=== PATIENT | male | born 1925 | race Caucasian/White ===

== ENCOUNTER 2016-11-16 17:16 | Emergency (ER) | payer OTHER ==
[~2016-11-16] VITALS: Ht 157.5 cm; Wt 70.0 kg
[2016-11-16 17:22] VITALS: TEMP 36.8; Ht 157.5 cm; Wt 70.0 kg
[2016-11-16] MEDS ORDERED: METO50TA16 PO (17:58)
[2016-11-16] MEDS ORDERED: FURO-85 PO (17:58)
[2016-11-16] MEDS ORDERED: PRLSR20 PO (17:58)
[2016-11-16] MEDS ORDERED: FORM1NEB NEB (17:58)
[2016-11-16] MEDS ORDERED: ATOR-26 PO (17:58)
[2016-11-16] MEDS ORDERED: ASPI-113 PO (17:58)
[2016-11-16] MEDS ORDERED: PLMIN90 INH (17:58)
[2016-11-16] MEDS ORDERED: OXGN (17:58)
[2016-11-16] MEDS ORDERED: ALBUAER INH (17:58)
[2016-11-16] MEDS ORDERED: LNX125 PO (17:58)
[2016-11-16 18:15] LABS: BASO % 0.3 %; BASO ABS # 0.02 K/uL (0-0.2); COMPLETE YES; EOS % 3.3 %; IG% 0.1 %; LYMPH % 23.7 %; LYMPH ABS # 1.75 K/uL (1.2-3.4); MEAN CELL VOLUME 93.8 fL (80-100); MEAN CORPUSCULAR HEMOGLOBIN 31.7 pg (25-34); MEAN CORPUSCULAR HGB CONC 33.8 g/dl (32-36); MEAN PLATELET VOLUME 10.1 fL (7.4-10.4); MONO % 9.4 %; NEUT % 63.2 %; PLATELET COUNT 184 K/uL (130-400); RED BLOOD COUNT 4.16 M/uL (4.7-6.1); WHITE BLOOD COUNT 7.37 K/uL (4.8-10.8)
[2016-11-16 18:28] LABS: PARTIAL THROMBOPLASTIN RATIO 1.1; PROTHROMBIN TIME (PATIENT) 10.8 SECONDS (9.0-12.0)
[2016-11-16 18:31] LABS: CALCIUM 8.4 mg/dl (8.5-10.1); CREATININE 1.1 mg/dl (0.60-1.40)
--- NOTE | 2016-11-16 18:52 | DIAGNOSTIC IMAGING REPORT ---
RIGHT LOWER EXTREMITY VENOUS DOPPLER HISTORY: Right leg bruising. COMPARISON STUDY: None. FINDINGS: There is normal compressibility, flow, and augmentation within the right lower extremity deep venous system. IMPRESSION: No DVT within the right lower extremity Electronically signed by: Sd Goode M.D. 11/16/2016 6:51 PM Dictated Date/Time: 11/16/2016 6:50 PM
[2016-11-16 19:21] VITALS: BP 119/69; PULSE 79; O2SAT 98
--- NOTE | 2016-11-16 20:38 | EMERGENCY ROOM VISIT NOTE ---
History Report prepared by Justine: Rajani Simon Under the Supervision of: Dr. Danny Burns M.D. First contact with patient: 17:28 Chief Complaint: OTHER COMPLAINT Stated Complaint: BRUISING IN GROIN AREA History of Present Illness The patient is an 89 year old male who presents to the Emergency Room with complaints of an episode of an injury to his right groin area occurring 2 days ago. He was carrying his groceries into his house 2 days ago when he twisted and had a sudden pain in his right groin. He started to fall and caught himself. When he did that he twisted again. Yesterday, while sitting on the toilet, the patient noticed that his right inner thigh was red. He now denies any pain or swelling to the area. The patient also denies fever, vomiting, abdominal pain, back pain, and urinary symptoms. He is still able to ambulate without difficulty. He takes a daily aspirin. Source of History: patient Onset: 2 days ago Position: other (right groin) Quality: other (redness) Timing: other (episode) Modifying Factors (Worsening): other (twisting) Associated Symptoms: No fevers, No vomiting, No abdominal pain, No back pain , No urinary symptoms Review of Systems See HPI for pertinent positives & negatives. A total of 10 systems reviewed and were otherwise negative. Past Medical & Surgical Medical Problems: (1) COPD (chronic obstructive pulmonary disease) Family History Non-pertinent due to advanced age. Social History Smoking Status: Former Smoker Housing Status: lives alone Occupation Status: retired Current/Historical Medications Scheduled Aspirin Enteric Coated (Ecotrin Or Generic), 325 MG PO DAILY Atorvastatin (Lipitor), 80 MG PO DAILY Budesonide (Pulmicort Flexhaler), 2 PUFFS INH BID Digoxin (Digoxin), 0.125 MG PO DAILY Formoterol Fumarate (Perforomist), 1 VIAL NEB BID Furosemide (Lasix), 30 MG PO DAILY Home O2 Therapy (Oxygen), 2 LITERS NA CONTINOUS Metoprolol Tartrate (Lopressor) (Lopressor), 25 MG PO BID Omeprazole (Prilosec), 20 MG PO DAILY Scheduled PRN Albuterol Sulfate (Proventil Hfa), 2 PUFFS INH UD PRN for SOB/Wheezing Allergies Coded Allergies: Nitroglycerin (Verified Allergy, Intermediate, Nausea//Vomiting, 11/16/16) Physical Exam Vital Signs Date Time Temp Pulse Resp B/P (MAP) Pulse Ox O2 Delivery O2 Flow Rate FiO2 11/16/16 19:21 79 16 119/69 98 11/16/16 17:22 36.8 67 28 125/86 97 Nasal Cannula 2.0 Physical Exam Constitutional: Vital signs reviewed. Eyes: Pupils are equal round reactive to light. Conjunctiva are noninjected. ENT: Pharynx is clear without erythema or exudate. Mucous membranes are moist. Neck supple without meningeal signs. Respiratory: Clear to auscultation bilaterally. Breath sounds are equal bilaterally. Cardiovascular: Regular rate and rhythm. No rubs or gallops. GI: Soft, nondistended and nontender. Bowel sounds are present. Musculoskeletal: No peripheral edema. No lower extremity tenderness. He has bruising to the right inner thigh, normal distal pulses, no tenderness, FROM of the hip without tenderness. Integumentary: No cyanosis. Neurological: The patient is awake and alert. No focal deficits. Psychiatric: Normal affect. Medical Decision & Procedures ER Provider Diagnostic Interpretation: Radiology results as stated below per my review and the radiologist's interpretation: RIGHT LOWER EXTREMITY VENOUS DOPPLER HISTORY: Right leg bruising. COMPARISON STUDY: None. FINDINGS: There is normal compressibility, flow, and augmentation within the right lower extremity deep venous system. IMPRESSION: No DVT within the right lower extremity Electronically signed by: Sd Goode M.D. 11/16/2016 6:51 PM Dictated Date/Time: 11/16/2016 6:50 PM Laboratory Results 11/16/16 18:00 Red Blood Count 4.16, Mean Corpuscular Volume 93.8, Mean Corpuscular Hemoglobin 31.7, Mean Corpuscular Hemoglobin Concent 33.8, Mean Platelet Volume 10.1, Neutrophils (%) (Auto) 63.2, Lymphocytes (%) (Auto) 23.7, Monocytes (%) (Auto) 9.4, Eosinophils (%) (Auto) 3.3, Basophils (%) (Auto) 0.3, Neutrophils # (Auto) 4.66, Lymphocytes # (Auto) 1.75, Monocytes # (Auto) 0.69, Eosinophils # (Auto) 0.24, Basophils # (Auto) 0.02 11/16/16 18:00 Test 11/16/16 18:00 White Blood Count 7.37 K/uL (4.8-10.8) Red Blood Count 4.16 M/uL (4.7-6.1) Hemoglobin 13.2 g/dL (14.0-18.0) Hematocrit 39.0 % (42-52) Mean Corpuscular Volume 93.8 fL (80-100) Mean Corpuscular Hemoglobin 31.7 pg (25-34) Mean Corpuscular Hemoglobin Concent 33.8 g/dl (32-36) Platelet Count 184 K/uL (130-400) Mean Platelet Volume 10.1 fL (7.4-10.4) Neutrophils (%) (Auto) 63.2 % Lymphocytes (%) (Auto) 23.7 % Monocytes (%) (Auto) 9.4 % Eosinophils (%) (Auto) 3.3 % Basophils (%) (Auto) 0.3 % Neutrophils # (Auto) 4.66 K/uL (1.4-6.5) Lymphocytes # (Auto) 1.75 K/uL (1.2-3.4) Monocytes # (Auto) 0.69 K/uL (0.11-0.59) Eosinophils # (Auto) 0.24 K/uL (0-0.5) Basophils # (Auto) 0.02 K/uL (0-0.2) RDW Standard Deviation 44.9 fL (36.4-46.3) RDW Coefficient of Variation 13.0 % (11.5-14.5) Immature Granulocyte % (Auto) 0.1 % Immature Granulocyte # (Auto) 0.01 K/uL (0.00-0.02) Prothrombin Time 10.8 SECONDS (9.0-12.0) Prothromb Time International Ratio 1.0 (0.9-1.1) Activated Partial Thromboplast Time 28.9 SECONDS (21.0-31.0) Partial Thromboplastin Ratio 1.1 Anion Gap 4.0 mmol/L (3-11) Est Creatinine Clear Calc Drug Dose 39.9 ml/min Estimated GFR () 69.1 Estimated GFR (Non- 59.6 BUN/Creatinine Ratio 17.0 (10-20) Calcium Level 8.4 mg/dl (8.5-10.1) Laboratory results as reviewed by me. ED Course 1728: The patient was evaluated in room B11B. A complete history and physical exam was performed. 1853: I reassessed the patient at this time. He is feeling better and resting comfortably. I discussed the results and treatment plan with the patient. I answered all pertaining questions that he had. He expressed understanding and verbalized agreement. The patient will be discharged home. Medical Decision This is an 89-year-old male who presents with transient groin pain with bruising. Differential diagnosis includes groin pull, strain, superficial thrombophlebitis, DVT. I did perform a limited focused review of portions of the patient's old chart on the electronic medical record. The patient has had no recent pertinent visits to this hospital. Medication Reconciliation: I attest that I have personally reviewed the patient' s current medication list. Blood Pressure Screening: Patient was found to have an elevated blood pressure and was referred to their primary doctor for recheck and further treatment. I did evaluate the patient as noted above. The patient is presenting with bruising to his right leg. They came in today because they were concerned about a clot in his leg. He denies having any pain and does not have any generalized swelling to the leg. His son was also concerned about his potassium because he is on Lasix. IV access was established. I did order and review the patient's blood work as noted in the electronic medical record. I did order a Doppler ultrasound of the leg.. I did review the images myself as well as the radiology report as described above. There is no evidence of DVT. I did discuss the test results with the patient and his son. He was advised follow with his doctor discharged in good condition. Impression Primary Impression: Right leg injury Scribe Attestation The scribe's documentation has been prepared under my direct and personally reviewed by me in its entirety. I confirm that the note above accurately reflects all work, treatment, procedures, and medical decision making performed by me. Departure Information Dispostion Home / Self-Care Referrals Simeon Melgoza (PCP) Forms HOME CARE DOCUMENTATION FORM, IMPORTANT VISIT INFORMATION, WORK / SCHOOL INSTRUCTIONS Patient Instructions My [facility] Additional Instructions You have been examined and treated today on an emergency basis only. This is not a substitute for, or an effort to provide, complete comprehensive medical care. It is impossible to recognize and treat all injuries or illnesses in a single emergency department visit. It is therefore important that you follow up closely with your physician. Call as soon as possible for an appointment. Return for worsening symptoms or if you develop fever, vomiting, significant swelling to the leg, chest pain or any other concerning symptoms. Problem Qualifiers Primary Impression: Right leg injury Encounter type: initial encounter Qualified Codes: S89.91XA - Unspecified injury of right lower leg, initial encounter
== END 2016-11-16 19:15 | disposition home or self-care (01) ==
LOC: C.EDB 17:19
DX: S80.11XA Contusion of right lower leg, initial encounter (principal); X50.0XXA Overexertion from strenuous movement or load, initial encounter; Y92.008 Other place in unspecified non-institutional (private) residence as the place of occurrence of the external cause; J44.9 Chronic obstructive pulmonary disease, unspecified; Z87.891 Personal history of nicotine dependence; Z79.899 Other long term (current) drug therapy